=== PATIENT | male | born 1970 | race Caucasian/White ===

== ENCOUNTER 2018-09-26 07:27 | Outpatient (CLI) | payer OTHER, SELFPAY ==
[2018-09-26] VITALS (7 sets, daily range): BP systolic 94–122; BP diastolic 69–83; PULSE 67–76; RESP 12–16; TEMP 37.1; O2SAT 97–99
--- NOTE | 2018-09-26 07:29 | DI.RAD.S_ITS ---
PROCEDURE: PAIN C/T INTERLAMINAR INJECT INDICATIONS: SPINAL STENOSIS FINDINGS: Fluoroscopic spot filming was performed to verify placement of spinal needles. Appropriate location(s) of the needle tip(s) was confirmed by injection of iodinated contrast. IMPRESSION: Fluoroscopy for pain management. Dictated by: Donita Curry M.D. on 09/26/2018 at 12:03 Approved by: Donita Curry M.D. on 09/26/2018 at 12:04
[2018-09-26] MEDS: MIDAZOLAM 5 MG/5 ML VIAL IV (08:24)
[2018-09-26] MEDS: IOPAMIDOL 15 ML VIAL 3 ML INJ (08:45)
[2018-09-26] MEDS: DEXAMETHASONE 10 MG/ML VIAL 30 MG INJ (08:46)
[2018-09-26] MEDS: LIDOCAINE 1% 20 ML INJ 5 ML INJ (08:46)
--- NOTE | 2018-09-26 08:52 | PM.PROC.1 ---
Procedures Date/Time Date of procedure: 09/26/18 Time of procedure: 08:52 General Procedure description: PREOP DIAGNOSIS 1. CERVICAL STENOSIS, 2. CERVICAL HNP WITH UPPER EXTREMITY RADICULAR FEATURES, POST OP DIAGNOSIS 1. CERVICAL STENOSIS, 2. CERVICAL HNP WITH UPPER EXTREMITY RADICULAR FEATURES, PROCEDURES 1. FLUORSCOPICALLY GUIDED CONTRAST CONTROLLED INTERLAMINAR EPIDURAL STEROID INJECTION - C6/7 TL SAMEERA PHYSICIAN: Aj Daniels, DO INDICATIONS Saw is referred by Dr. Bear for treatment of Cervical HNP with Upper Extremity Paresthesias. FINDINGS Cervical Stenosis due to disc deterioration and nerve root irritation and nerve root irritation DESCRIPTION OF PROCEDURE Fluoroscopically guided, contrast-controlled C6/7 translaminar epidural steroid injection with conscious sedation. Following denial of allergy and review of potential side effects and complications, including, but not necessarily limited to, infection, allergic reaction, local tissue breakdown, temporary as well as permanent nerve injury, stroke, paralysis, and possible , the patient indicated that patient understood and agreed to proceed. An informed consent document was signed by the patient, witnessed by a nurse, and placed in the patient's chart. Additionally, other treatment options including modalities, medications, and physical therapy were reviewed with the patient. After review of previous anaesthesic history and IV conscious sedation the patient was deemed safe to proceed with todays procedure with IV conscious sedation as ASA class II designation. Safety time-out was performed to confirm patient ID, procedure to be performed and site of procedure. IV sedation was accomplished with a combination of 5mg of Versed administered by the RN after DO order, titrated to patient comfort during the course of the procedure while the patient remained responsive to all verbal commands. In the prone position, following sterile prep and drape of the cervical region, the C6/7 translaminar space was identified fluoroscopically. The skin was anesthetized via a 25-gauge 1.5-inch needle with 1% lidocaine solution. At this point, a 25-gauge, 2.5-inch short bevel spinal needle was atraumatically introduced and advanced under fluoroscopic guidance into epidural space at the C6/7 translaminar space. Depth was confirmed on lateral view. Radiological data, including multiple fluoroscopic views of the cervical spine, reveal a spinal needle at the C6/7 translaminar space. Lateral views then show placement of the needle in the epidural space. Subsequent views show contrast material flowing superiorly and inferiorly in the epidural space. DSA fluoroscopy with live contrast injection, once again, confirmed no vascular or intrathecal uptake. At this point, using loss of resistance technique with saline and air, the epidural space was entered. Following negative aspiration, injection of approximately 1.5 cc of Isovue-200 with live fluoroscopy in the AP view confirmed epidural flow in the epidural space without vascular or intrathecal uptake observed. Subsequently, a test dose of 1 cc of 1% lidocaine solution was injected and patient was observed for two minutes without signs or symptoms of complications, including abdominal pain, shortness of breath, bilateral upper or lower extremity weakness, nausea and vomiting, prior to steroid injection. At this point, 3 cc or 30 mg of dexamethasone was then injected without incident. The patient tolerated the procedure well without signs or symptoms of complications prior to being transferred to the recovery area for further monitoring, The patient was then transferred to the recovery area where they were observed for an appropriate period of time after the injection. The patient reported a VAS score of 6 prior to the procedure and a post-procedure VAS of 0. Total Fluoroscopy Time: 37.0 seconds Total Conscious Time: 24min POST OP INSTRUCTIONS The patient was provided a Pain Log to continue to record their response to the target-specific procedure prior to follow-up visit with the referring provider. Additionally, specific post-injection care instructions and a contact number to our office were provided if concerns arise regarding possible complications associated with the procedure are suspected. Aj Daniels, Complications: none
--- NOTE | 2018-09-26 08:57 | PC.NURSE ---
ACCEPTED CARE OF PT IN POST PROC AREA IN STABLE CONDITION.
--- NOTE | 2018-09-26 09:02 | PC.NURSE ---
Pt finished procedure at 0845, assisted him off the table with 2 person stand by assist. Pt alert and awake, transferred to Pre procedure room for resumed monitoring by Luisana GATICA.
--- NOTE | 2018-09-27 15:55 | PC.NURSE ---
FOLLOW UP CALL MADE. PT STATES PAIN IS MUCH BETTER THAN BEFORE PROCEDURE AND DENIES QUESTIONS/CONCERNS. REMINDED PT TO CONTINUE WITH PAIN LOG AND CALL CLINIC FOR ANY QUESTIONS/CONCERNS.
== END 2018-09-26 09:33 | disposition home or self-care (01) ==
LOC: RAD 07:29
PROVIDERS: PCP Family Medicine; Visit Provider Physical Medicine & Rehabilitation
DX: M50.123 Cervical disc disorder at C6-C7 level with radiculopathy (principal); M48.02 Spinal stenosis, cervical region; R51 Headache
CPT/HCPCS: 62321; 99152; J1100; J2250

== ENCOUNTER 2018-12-13 14:29 | Outpatient (CLI) | payer OTHER, SELFPAY ==
[2018-12-13] VITALS (9 sets, daily range): BP systolic 102–144; BP diastolic 63–92; PULSE 71–91; RESP 16–18; TEMP 36.4; O2SAT 96–98
--- NOTE | 2018-12-13 14:33 | DI.RAD.S_ITS ---
PROCEDURE: PAIN L/SI FACET INJ/BLK 1STL INDICATIONS: Right-sided L4-5 5 1 facet joint injection FINDINGS: Fluoroscopic spot filming was performed to verify placement of spinal needles at the right L4-5 and L5-S1 level(s), as labeled on the films. Appropriate location(s) of the needle tip(s) was confirmed by injection of iodinated contrast. IMPRESSION: Successful needle tip localization for facet joint steroid injections on the right at L4-5 and L5-S1. Dictated by: Horacio Goodson M.D. on 12/13/2018 at 15:56 Approved by: Horacio Goodson M.D. on 12/13/2018 at 15:56
[2018-12-13] MEDS: MIDAZOLAM 5 MG/5 ML VIAL IV (15:05)
[2018-12-13] MEDS: LIDOCAINE 1% 20 ML INJ 10 ML INJ (15:09)
[2018-12-13] MEDS: IOPAMIDOL 15 ML VIAL 3 ML INJ (15:09)
[2018-12-13] MEDS: BETAMETHASONE 30 MG/5 ML MDV 12 MG INJ (15:10)
--- NOTE | 2018-12-13 15:11 | PC.NURSE ---
ASSISTING PT OFF TABLE AND TRANSPORTING TO POST PROC AREA IN STABLE CONDITION
--- NOTE | 2018-12-13 15:16 | P.PCN_ITS ---
Procedures Date/Time Date of procedure: 12/13/18 Time of procedure: 15:16 General Procedure description: PREOP DIAGNOSIS 1. FACET ARTHROPATHY, 2. AXIAL LBP, 3. MULTILEVEL DDD, POST OP DIAGNOSIS 1. FACET ARTHROPATHY, 2. AXIAL LBP, 3. MULTILEVEL DDD, PROCEDURES 1. FLUORSCOPICALLY GUIDED CONTRAST CONTROLLED FACET JOINT INJECTIONS RIGHT L4/5, L5/S1 SURGEON: Aj Daniels, DO INDICATIONS Saw is referred by Dr. Bear for treatment of Axial LBP FINDINGS Multilevel Facet Arthropathy with Clinically significant axial LBP DESCRIPTION OF PROCEDURE Fluoroscopically guided, contrast-controlled right L4/5, L5/S1 facet joint injections. Following denial of allergy and review of potential side effects and complications, including, but not necessarily limited to, infection, allergic reaction, local tissue breakdown, stroke, temporary or permanent nerve injury, paralysis, and possible , the patient indicated that the patient understood and agreed to proceed. An informed consent document was signed by the patient, witnessed by a nurse, and placed in the patient's chart. Additionally, other treatment options including medications, modalities, and physical therapy were reviewed with the patient. After review of previous anaesthesic history and IV conscious sedation the patient was deemed safe to proceed with todays procedure with IV conscious sedation as ASA class II designation. Safety time-out was performed to confirm patient ID, procedure to be performed and site of procedure. IV sedation was accomplished with a combination of 3mg of Versed was administered by the RN after DO order, titrated to patient comfort during the course of the procedure while the patient remained responsive to all verbal commands. In the prone position, following sterile prep and drape of the lumbar region, the posterior aspect of the right L4/5, L5/S1 facet joints were identified fluoroscopically. The skin was anesthetized via a 25-gauge 1.5-inch needle with 1% lidocaine solution into the corresponding facet joints. At this point, a 22- gauge 3.5-inch spinal needle was atraumatically introduced and advanced under fluoroscopic guidance into the corresponding facet joints. Following negative aspiration, injections of approximately 0.2-cc of Isovue 200 confirmed interarticular placement without vascular uptake. Radiological data, including multiple fluoroscopic views of the lumbosacral spine, reveal a spinal needle at the right L4/5, L5/S1 facet joints. Subsequent views show flow of contrast material both superiorly and inferiorly within the joint space without vascular or intrathecal uptake. At this point, a total of 0.5 cc including a mixture of 0.25cc Marcaine and 0.25cc betamethasone was injected without complication into each of the corresponding facet joints. The procedure tolerated the procedure well without signs or symptoms of complications prior to transfer to the recovery area continued monitoring without incident. The patient was then transferred to the recovery area where they were observed for an appropriate period of time after the injection. The patient reported a VAS score of 7 prior to the procedure and a post-procedure VAS of 0. Total Fluoroscopy Time: 7 seconds Total Conscious Sedation Time: 24min POST OP INSTRUCTIONS The patient was provided a Pain Log to continue to record their response to the target-specific procedure prior to follow-up visit with their referring physician. Additionally, specific post-injection care instructions and a contact number to our office were provided if concerns arise regarding possible complications associated with the procedure are suspected. Aj Daniels, Complications: none
== END 2018-12-13 15:43 ==
LOC: RAD 14:32
PROVIDERS: PCP Family Medicine; Visit Provider Physical Medicine & Rehabilitation
DX: M47.817 Spondylosis without myelopathy or radiculopathy, lumbosacral region (principal); M47.816 Spondylosis without myelopathy or radiculopathy, lumbar region; M51.36 Other intervertebral disc degeneration, lumbar region; M51.37 Other intervertebral disc degeneration, lumbosacral region; M54.5 Low back pain
CPT/HCPCS: 64493; 64494; 99152; J0702; J2250; J3010

== ENCOUNTER 2019-02-27 10:04 | Outpatient (CLI) | payer OTHER, SELFPAY ==
[2019-02-27] VITALS (7 sets, daily range): BP systolic 101–132; BP diastolic 71–92; PULSE 72–83; RESP 16–18; TEMP 36.7; O2SAT 96–99
--- NOTE | 2019-02-27 | DI.RAD.S_ITS ---
PROCEDURE: PAIN C/T FACET INJ/BLK 1ST L INDICATIONS: C5/6, C6/7 FACET INJ FINDINGS: Fluoroscopic spot filming was performed to verify placement of spinal needles at the C5-C6 and C6-C7 level. Appropriate location(s) of the needle tip(s) was confirmed by injection of iodinated contrast. Dictated by: Kris Barreto M.D. on 02/27/2019 at 12:57 Approved by: Kris Barreto M.D. on 02/27/2019 at 12:58
--- NOTE | 2019-02-27 11:38 | P.PCN_ITS ---
Procedures Date/Time Date of procedure: 02/27/19 Time of procedure: 11:37 General Procedure description: PREOP DIAGNOSIS 1. FACET ARTHROPATHY, 2. AXIAL LBP, 3. MULTILEVEL DDD, POST OP DIAGNOSIS 1. FACET ARTHROPATHY, 2. AXIAL LBP, 3. MULTILEVEL DDD, PROCEDURES 1. FLUORSCOPICALLY GUIDED CONTRAST CONTROLLED FACET JOINT INJECTIONS RIGHT L3/4, L4/5 SURGEON: Aj Daniels, DO INDICATIONS Saw is referred by Dr. Bear for treatment of Axial LBP FINDINGS Multilevel Facet Arthropathy with Clinically significant axial LBP DESCRIPTION OF PROCEDURE Fluoroscopically guided, contrast-controlled right L2/3, L3/4, L4/5 facet joint injections. Following review of allergy and review of potential side effects and complications, including, but not necessarily limited to, infection, allergic reaction, local tissue breakdown, stroke, temporary or permanent nerve injury, paralysis, and possible , the patient indicated that the patient understood and agreed to proceed. An informed consent document was signed by the patient, witnessed by a nurse, and placed in the patient's chart. Additionally, other treatment options including medications, modalities, and physical therapy were reviewed with the patient. After review of previous anaesthesic history and IV conscious sedation the patient was deemed safe to proceed with todays procedure with IV conscious sedation as ASA class II designation. Safety time-out was performed to confirm patient ID, procedure to be performed and site of procedure. IV sedation was accomplished with a combination of 3mg of Versed and 50mcg of Fentanyl administered by the RN after DO order, titrated to patient comfort during the course of the procedure while the patient remained responsive to all verbal commands. In the prone position, following sterile prep and drape of the lumbar region, the posterior aspect of the right L2/3, L3/4, L4/5 facet joints were identified fluoroscopically. The skin was anesthetized via a 25-gauge 1.5-inch needle with 1% lidocaine solution into the corresponding facet joints. At this point, a 22- gauge 3.5-inch spinal needle was atraumatically introduced and advanced under fluoroscopic guidance into the corresponding facet joints. Following negative aspiration, injections of approximately 0.2-cc of Isovue 200 confirmed interarticular placement without vascular uptake. Radiological data, including multiple fluoroscopic views of the lumbosacral spine, reveal a spinal needle at the right L2/3, L3/4, L4/5 facet joints. Subsequent views show flow of contrast material both superiorly and inferiorly within the joint space without vascular or intrathecal uptake. At this point, a total of 0.5 cc including a mixture of 0.25 cc Marcaine and 0.25 cc betamethasone was injected without complication into each of the corresponding facet joints. The patient tolerated the procedure well without signs or symptoms of complications prior to transfer to the recovery area for further monitoring. The patient was then transferred to the recovery area where they were observed for an appropriate period of time after the injection. The patient reported a VAS score of 7 prior to the procedure and a post-procedure VAS of 0. Total Fluoroscopy Time: 12.7 seconds Total Conscious Sedation Time: 24min POST OP INSTRUCTIONS The patient was provided a Pain Log to continue to record their response to the target-specific procedure prior to follow-up visit with their referring physician. Additionally, specific post-injection care instructions and a contact number to our office were provided if concerns arise regarding possible complications associated with the procedure are suspected Complications: none
[2019-02-27] MEDS: fentaNYL 100 MCG/2 ML INJ 50 MCG IV (11:56)
[2019-02-27] MEDS: MIDAZOLAM 5 MG/5 ML VIAL IV (11:56)
[2019-02-27] MEDS: BUPIVACAINE 0.5% (PF) VIAL 2 ML INJ (12:03)
[2019-02-27] MEDS: LIDOCAINE 1% 20 ML INJ 5 ML INJ (12:03)
[2019-02-27] MEDS: DEXAMETHASONE 10 MG/ML VIAL 30 MG INJ (12:03)
[2019-02-27] MEDS: IOPAMIDOL 15 ML VIAL 3 ML INJ (12:04)
--- NOTE | 2019-02-27 12:05 | PC.NURSE ---
ASSISTING PT OFF TABLE AND TRANSPORTING TO POST PROC AREA IN STABLE CONDITION
--- NOTE | 2019-02-27 12:15 | PC.NURSE ---
Pt returned from procedure awake and alert via wheelchair, able to transfer from w/c to chair with standby assist. Resumed monitoring from Luisana GATICA.
--- NOTE | 2019-02-27 12:20 | P.PCN_ITS ---
Procedures Date/Time Date of procedure: 02/27/19 Time of procedure: 12:18 General Procedure description: PREOP DIAGNOSIS 1. FACET ARTHROPATHY 2. AXIAL NECK PAIN POST OP DIAGNOSIS 1. FACET ARTHROPATHY 2. AXIAL NECK PAIN PROCEDURES 1. FLUOROSCOPICALLY GUIDED, CONTRAST-CONTROLLED RIGHT C5/6 AND C6/7 FACET JOINT INJECTIONS WITH CONSCIOUS SEDATION. PHYSICIAN: Aj Daniels, INDICATIONS Saw is referred by Dr. Bear for treatment of Axial Neck Pain DESCRIPTION OF PROCEDURE Fluoroscopically guided, contrast-controlled right C5/6 and C6/7 facet joint injections with conscious sedation. Following review of allergy and review of potential side effects and complications, including, but not necessarily limited to, infection, allergic reaction, local tissue breakdown, stroke, temporary or permanent nerve injury and paralysis, the patient indicated that the patient understood and agreed to proceed. An informed consent document was signed by the patient, witnessed by a nurse, and placed in the patient's chart. Additionally, other treatment options including medications, modalities, and physical therapy were reviewed with the patient. After review of previous anaesthesic history and IV conscious sedation the p atient was deemed safe to proceed with todays procedure with IV conscious sedation as ASA class II designation. Safety time-out was performed to confirm patient ID, procedure to be performed and site of procedure. IV sedation was accomplished with a combination of 3mg of Versed and 50mcg of Fentanyl was administered by the RN after DO order, titrated to patient comfort during the course of the procedure while the patient remained responsive to all verbal commands In the prone position, following sterile prep and drape of the cervical spine region, the posterior aspect of the right C5/6 and C6/7 facet joints were identified fluoroscopically. The skin was anesthetized via a 25-gauge 1.5-inch needle with 1% lidocaine solution into the corresponding facet joints. At this point, a 25-gauge 2.5-inch spinal needle was atraumatically introduced and advanced under fluoroscopic guidance into the corresponding facet joints. Following negative aspiration, injections of approximately 0.2-cc of Isovue 200 confirmed interarticular placement without vascular uptake. At this point, a total of 1 cc including 0.5 cc or 5 mg of dexamethasone combined with 0.5 cc of 1% lidocaine solution was injected without complication into each of the corresponding facet joints. The procedure tolerated the procedure well without signs or symptoms of complications prior to transfer to the recovery area continued monitoring without incident. The patient was then transferred to the recovery area where they were observed for an appropriate period of time after the injection. The patient reported a VAS score of 7 prior to the procedure and a post- procedure VAS of 0. Total Fluoroscopy Time: 20.5 seconds Total Conscious Sedation Time: 24 min POST OP INSTRUCTIONS They were provided a Pain Log to continue to record their response to the target-specific procedure prior to their follow-up visit with their referring physician. Additionally, specific post-injection care instructions and a contact number to our office were provided if concerns arise regarding possible complications associated with the procedure are suspected. Aj Daniels DO Complications: none
== END 2019-02-27 12:42 ==
PROVIDERS: PCP Family Medicine; Visit Provider Physical Medicine & Rehabilitation
DX: M47.812 Spondylosis without myelopathy or radiculopathy, cervical region (principal); M54.2 Cervicalgia
CPT/HCPCS: 64490; 64491; 99152; 99153; J1100; J2250; J3010

== ENCOUNTER → 2019-07-31 13:18 | Outpatient (CLI) | payer OTHER, SELFPAY ==
--- NOTE | 2019-07-31 13:19 | DI.MRI.S_ITS ---
PROCEDURE: MR CERVICAL SPINE WO CON INDICATIONS: Neck and bilateral shoulder pain TECHNIQUE: Noncontrast sagittal T1 spin echo and T2 fast spin echo, sagittal STIR, foraminal oblique sagittal T2 fast spin echo, and axial gradient echo or T2 fast spin echo through the cervical spine. COMPARISON: MR, MR CERVICAL SPINE WO CON, 02/18/2017, 11:18. MR, CERVICAL SPINE W/O CONTRAST, 10/01/2011, 18:21. [facility], CR, XR CERVICAL SPINE 4V OR 5V, 07/31/2019, 13:39. FINDINGS: Image quality: Excellent. Alignment and Curvature: There is normal bony alignment. There is straightening of upper cervical spine curvature. Bone Marrow: Marrow demonstrates normal overall signal. Spinal Cord: Visualized spinal cord has normal size and signal. No cerebellar tonsillar herniation. Paraspinous Soft Tissues: No paravertebral masses. Prevertebral soft tissues are normal in thickness. C2-C3: Loss of disc signal. No central stenosis. No neural foraminal narrowing. No neural compression. C3-C4: Loss of disc signal. No central stenosis. Mild right uncovertebral joint hypertrophy. Mild right neural foraminal narrowing. No neural compression. C4-C5: Loss of disc signal and mild loss of disc height. Mild, diffuse disc bulge. Mild narrowing of the central canal. Mild bilateral facet hypertrophy. Mild bilateral uncovertebral joint hypertrophy. Mild bilateral neural foraminal narrowing. No neural compression. C5-C6: Loss of disc signal. No central stenosis. No neural foraminal narrowing. No neural compression. C6-C7: Loss of disc signal. Minimal, diffuse disc bulge. No central stenosis. Mild bilateral uncovertebral joint hypertrophy. Mild left neural foraminal narrowing. No neural compression. C7-T1: Normal appearance. IMPRESSION: 1. Multilevel degenerative disease. 2. Mild C4-C5 central canal narrowing. 3. Mild bilateral C4 and C5 neural foraminal narrowing. Mild right C3-C4 neural foraminal narrowing. Mild left C6-C7 neural foraminal narrowing. 4. No neural compression. Dictated by: Rosio Alvarez MD, PhD on 07/31/2019 at 18:11 Approved by: Rosio Alvarez MD, PhD on 07/31/2019 at 18:16
--- NOTE | 2019-07-31 13:19 | DI.RAD.S_ITS ---
PROCEDURE: XR CERVICAL SPINE 4V OR 5V INDICATIONS: Cervical radiculopathy TECHNIQUE: 5 views of the cervical spine acquired. COMPARISON: None. FINDINGS: Bones: No fractures or dislocations to the T4 level. Oblique images demonstrate no bony foraminal stenoses. Mild multilevel cervical spondylitic changes. No acute compression fractures of the vertebral bodies. C1-C2 relationship is present. Soft tissues: No prevertebral soft tissue swelling. A vascular stent is noted in the right neck. The IMPRESSION: Mild multilevel cervical spondylosis. No significant neural foraminal narrowing identified. Dictated by: Wesly Singh M.D. on 07/31/2019 at 17:08 Approved by: Wesly Singh M.D. on 07/31/2019 at 17:10
== END ==
PROVIDERS: PCP Family Medicine; Visit Provider Physical Medicine & Rehabilitation
DX: M25.512 Pain in left shoulder (principal); M25.511 Pain in right shoulder; M50.121 Cervical disc disorder at C4-C5 level with radiculopathy; M47.22 Other spondylosis with radiculopathy, cervical region; M48.02 Spinal stenosis, cervical region; R51 Headache
CPT/HCPCS: 72050; 72141

== ENCOUNTER 2019-09-25 09:23 | Outpatient (CLI) | payer OTHER, SELFPAY ==
[2019-09-25] VITALS (7 sets, daily range): BP systolic 112–124; BP diastolic 77–87; PULSE 68–78; RESP 16; TEMP 36.3; O2SAT 95–100
--- NOTE | 2019-09-25 09:24 | DI.RAD.S_ITS ---
PROCEDURE: PAIN C/T FACET INJ/BLK 1ST L INDICATIONS: SPONDYLOSIS FINDINGS: Fluoroscopic spot filming was performed to verify placement of spinal needles at the C5, C6, C7 level(s), as labeled on the films. Appropriate location(s) of the needle tip(s) was confirmed by injection of iodinated contrast. Dictated by: Kris Barreto M.D. on 09/25/2019 at 13:40 Approved by: Kris Barreto M.D. on 09/25/2019 at 13:40
[2019-09-25] MEDS: MIDAZOLAM 5 MG/5 ML VIAL IV (10:54)
[2019-09-25] MEDS: fentaNYL 100 MCG/2 ML INJ 50 MCG IV (10:55)
[2019-09-25] MEDS: IOPAMIDOL 15 ML VIAL 3 ML INJ (11:06)
[2019-09-25] MEDS: BUPIVACAINE 0.5% (PF) VIAL 2 ML INJ (11:06)
--- NOTE | 2019-09-25 11:08 | PC.NURSE ---
ASSISTING PT OFF TABLE AND TRANSPORTING TO POST PROC AREA IN STABLE CONDITION. PASSING RN CARE OF PT OFF TO ROLAN Hernandez RN.
--- NOTE | 2019-09-25 11:15 | P.PCN_ITS ---
Procedures Date/Time Date of procedure: 09/25/19 Time of procedure: 11:15 General Procedure description: PREOP DIAGNOSIS 1. FACET ARTHROPATHY 2. AXIAL NECK PAIN POST OP DIAGNOSIS 1. FACET ARTHROPATHY 2. AXIAL NECK PAIN PROCEDURES 1. FLUOROSCOPICALLY GUIDED, CONTRAST-CONTROLLED RIGHT C5, C6, C7 MBB. PHYSICIAN: Aj Daniels, DO INDICATIONS Saw is referred by for treatment of Axial Neck Pain DESCRIPTION OF PROCEDURE Fluoroscopically guided, contrast-controlled right C5, C6, C7 Diagnostic Medial Branch Blocks. Following review of allergy and review of potential side effects and complications, including, but not necessarily limited to, infection, allergic reaction, local tissue breakdown, stroke, temporary or permanent nerve injury and paralysis, the patient indicated that the patient understood and agreed to proceed. An informed consent document was signed by the patient, witnessed by a nurse, and placed in the patient's chart. Additionally, other treatment options including medications, modalities, and physical therapy were reviewed with the patient. After review of previous anaesthesic history and IV conscious sedation the patient was deemed safe to proceed with todays procedure with IV conscious sedation as ASA class II designation. Safety time-out was performed to confirm patient ID, procedure to be performed and site of procedure. IV sedation was accomplished with a combination of 3mg of Versed and 50mcg of Fentanyl was administered by the RN after DO order, titrated to patient comfort during the course of the procedure while the patient remained responsive to all verbal commands Time-out was taken to identify the correct patient, procedure and side prior to starting the procedure. Lying in the prone position, the patient was prepped and draped in the usual sterile fashion using Chlorhexaidine scrub and a fenestrated drape. The level was determined under fluoroscopy. The skin was anesthetized via a 25-gauge 1.5- inch needle with 1% lidocaine solution into the corresponding right C5, C6, C7 lateral pillars. At this point, a 25-gauge short bevel spinal needle was atraumatically introduced and advanced under fluoroscopic guidance to the anatomical pillars. Following negative aspiration, injections of approximately 0.1cc of Isovue 200 confirmed interarticular placement without vascular uptake. At this point, a total of 1cc of 0.5% was injected without complication into each of the corresponding medial branch anatomical location. The patient tolerated the procedure well without signs or symptoms of complications prior to transfer to the recovery area continued monitoring without incident. The patient was then transferred to the recovery area where they were observed for an appropriate period of time after the injection. The patient reported a VAS score of 7 prior to the procedure and a post- procedure VAS of 1. Total Fluoroscopy Time: 10 seconds Total Conscious Sedation Time: 24 min POST OP INSTRUCTIONS They were provided a Pain Log to continue to record their response to the target-specific procedure prior to their follow-up visit with their referring physician. Additionally, specific post-injection care instructions and a contact number to our office were provided if concerns arise regarding possible complications associated with the procedure are suspected. Complications: none
== END 2019-09-25 11:36 | disposition home or self-care (01) ==
LOC: RAD 09:24
PROVIDERS: PCP Family Medicine; Visit Provider Physical Medicine & Rehabilitation
DX: M47.812 Spondylosis without myelopathy or radiculopathy, cervical region (principal); M54.2 Cervicalgia
CPT/HCPCS: 64490; 64491; 99152; J2250; J3010

== ENCOUNTER → 2020-03-03 10:33 | Outpatient (CLI) | payer OTHER, SELFPAY ==
--- NOTE | 2020-03-03 10:35 | DI.RAD.S_ITS ---
PROCEDURE: XR LUMBAR SPINE MIN 4V INDICATIONS: low back pain TECHNIQUE: 5 views of the lumbar spine were acquired. COMPARISON: [facility] FRANK Shafer, XR LUMBAR SPINE WITH OBLIQUES, 06/23/2017, 13:21. FINDINGS: Bones: 5 nonrib-bearing vertebrae are present. There is normal bony alignment. There is an approximate 35% compression deformity at L5, unchanged. Moderate to severe foraminal narrowing is noted at L5-S1, L4-5. No suspicious bony lesions. Soft tissues: Overlying bowel gas pattern is normal. No suspicious soft tissue calcifications. Oblique images: No pars defects. IMPRESSION: Moderate to severe foraminal narrowing at L4-5, 5 S1. Dictated by: Shanice Robbins M.D. on 03/03/2020 at 16:38 Approved by: Shanice Robbins M.D. on 03/03/2020 at 16:39
--- NOTE | 2020-03-03 10:35 | DI.RAD.S_ITS ---
PROCEDURE: XR SHOULDER RT MIN 2V INDICATIONS: right shoulder pain TECHNIQUE: 3 views of the shoulder were acquired. COMPARISON: None. FINDINGS: Bones: No fractures or dislocations. No suspicious bony lesions. Visualized ribs appear intact. Moderate to severe acromioclavicular degenerative narrowing. Soft tissues: No suspicious soft tissue calcifications. IMPRESSION: Moderate to severe acromioclavicular degenerative narrowing. Dictated by: Shanice Robbins M.D. on 03/03/2020 at 12:34 Approved by: Shanice Robbins M.D. on 03/03/2020 at 12:34
== END ==
PROVIDERS: PCP Family Medicine; Referring Provider Physical Medicine & Rehabilitation; Visit Provider Physical Medicine & Rehabilitation
DX: M25.511 Pain in right shoulder (principal); M19.011 Primary osteoarthritis, right shoulder; M54.5 Low back pain; M48.061 Spinal stenosis, lumbar region without neurogenic claudication; M48.07 Spinal stenosis, lumbosacral region
CPT/HCPCS: 72110; 73030

== ENCOUNTER → 2020-07-15 09:20 | Outpatient (CLI) | payer OTHER, SELFPAY ==
[2020-07-15 11:07] LABS: COVID19 -Nasal RAPID Negative (Negative)
== END ==
PROVIDERS: PCP Family Medicine; Visit Provider Physical Medicine & Rehabilitation
DX: Z11.59 Encounter for screening for other viral diseases (principal); Z01.812 Encounter for preprocedural laboratory examination
CPT/HCPCS: 87635; C9803

== ENCOUNTER 2020-07-17 10:25 | Outpatient (CLI) | payer OTHER, SELFPAY ==
[2020-07-17] VITALS (9 sets, daily range): BP systolic 106–131; BP diastolic 65–90; PULSE 65–85; RESP 9–23; TEMP 36.5; O2SAT 95–99
--- NOTE | 2020-07-17 10:25 | DI.RAD.S_ITS ---
PROCEDURE: PAIN C/T INTERLAMINAR INJECT INDICATIONS: SPINAL STENOSIS COMPARISON: [facility], , PAIN C/T INTERLAMINAR INJECT, 09/26/2018, 8:39. FINDINGS: Fluoroscopic spot filming was performed to verify placement of a spinal needle at the C6-C7 level, as labeled on the films. Appropriate location of the needle tip was confirmed by injection of iodinated contrast. IMPRESSION: No significant intraprocedural abnormality. Dictated by: John Ruiz M.D. on 07/17/2020 at 11:46 Approved by: John Ruiz M.D. on 07/17/2020 at 11:47
[2020-07-17] MEDS: IOPAMIDOL 15 ML VIAL 3 ML INJ (11:34)
[2020-07-17] MEDS: DEXAMETHASONE 10 MG/ML VIAL 30 MG INJ (11:35)
[2020-07-17] MEDS: BUPIVACAINE 0.25% (PF) VIAL 2 ML INJ (11:35)
[2020-07-17] MEDS: fentaNYL 100 MCG/2 ML INJ 50 MCG IV (11:36)
[2020-07-17] MEDS: MIDAZOLAM 5 MG/5 ML VIAL IV (11:36)
--- NOTE | 2020-07-17 11:52 | P.PCN_ITS ---
Date/Time/Diagnoses Date of procedure: 07/17/20 Time of procedure: 11:53 Pre-procedure diagnosis: 1. CERVICAL STENOSIS, 2. CERVICAL HNP WITH UPPER EXTREMITY RADICULAR FEATURES Post-procedure diagnosis: same Procedure Notes Procedure: 1. FLUORSCOPICALLY GUIDED CONTRAST CONTROLLED INTERLAMINAR EPIDURAL STEROID INJECTION - C6/7 TL SAMEERA Indications: Saw is referred by Dr. Bear for treatment of Cervical HNP with Upper Extremity Paresthesias. Physician: Aj Daniels Total Fluoroscopy time (seconds): 24 Total sedation minutes: 18 Complications: none Procedure in detail & Post-procedure care: FINDINGS Cervical Stenosis due to disc deterioration and nerve root irritation and nerve root irritation DESCRIPTION OF PROCEDURE Fluoroscopically guided, contrast-controlled C6/7 translaminar epidural steroid injection with conscious sedation. Following review of allergy and review of potential side effects and complications, including, but not necessarily limited to, infection, allergic reaction, local tissue breakdown, temporary as well as permanent nerve injury, stroke, paralysis, and possible , the patient indicated that patient understood and agreed to proceed. An informed consent document was signed by the patient, witnessed by a nurse, and placed in the patient's chart. Additionally, other treatment options including modalities, medications, and physical therapy were reviewed with the patient. After review of previous anaesthesic history and IV conscious sedation the patient was deemed safe to proceed with today?s procedure with IV conscious sedation as ASA class II designation. Safety time-out was performed to confirm patient ID, procedure to be performed and site of procedure. IV sedation was accomplished with a combination of 4mg of Versed and 50mcg of Fentanyl administered by the RN after DO order, titrated to patient comfort during the course of the procedure while the patient remained responsive to all verbal commands. In the prone position, following sterile prep and drape of the cervical region, the C6/7 translaminar space was identified fluoroscopically. The skin was anesthetized via a 25-gauge 1.5-inch needle with 1% lidocaine solution. At this point, a 25-gauge, 2.5-inch short bevel spinal needle was atraumatically introduced and advanced under fluoroscopic guidance into epidural space at the C6/7 translaminar space. Depth was confirmed on lateral view. Radiological data, including multiple fluoroscopic views of the cervical spine, reveal a spinal needle at the C6/7 translaminar space. Lateral views then show placement of the needle in the epidural space. Subsequent views show contrast material flowing superiorly and inferiorly in the epidural space. DSA fluoroscopy with live contrast injection, once again, confirmed no vascular or intrathecal uptake. At this point, using loss of resistance technique with saline and air, the epidural space was entered. Following negative aspiration, injection of a pproximately 1.5 cc of Isovue-200 with live fluoroscopy in the AP view confirmed epidural flow in the epidural space without vascular or intrathecal uptake observed. Subsequently, a test dose of 1 cc of 1% lidocaine solution was injected and patient was observed for two minutes without signs or symptoms of complications, including abdominal pain, shortness of breath, bilateral upper or lower extremity weakness, nausea and vomiting, prior to steroid injection. At this point, 3cc or 30mg of dexamethasone was then injected without incident. The patient tolerated the procedure well without signs or symptoms of complications prior to being transferred to the recovery area for further monitoring, The patient was then transferred to the recovery area where they were observed for an appropriate period of time after the injection. The patient reported a VAS score of 6 prior to the procedure and a post-procedure VAS of 0. POST OP INSTRUCTIONS The patient was provided a Pain Log to continue to record their response to the target-specific procedure prior to follow-up visit with the referring provider. Additionally, specific post-injection care instructions and a contact number to our office were provided if concerns arise regarding possible complications associated with the procedure are suspected.
== END 2020-07-17 12:19 | disposition home or self-care (01) ==
LOC: RAD 10:25
PROVIDERS: PCP Family Medicine; Referring Provider Physical Medicine & Rehabilitation; Visit Provider Physical Medicine & Rehabilitation
DX: M54.12 Radiculopathy, cervical region (principal); M50.20 Other cervical disc displacement, unspecified cervical region
CPT/HCPCS: 62321; 99152; J1100; J2250; J3010